=== PATIENT | male | born 1955 | race Caucasian/White ===

== ENCOUNTER 2019-07-18 08:16 | Emergency (ER) | payer MEDICAID ==
[~2019-07-18] VITALS: Ht 152.4 cm; Wt 56.7 kg
[~2019-07-18 08:16] MED LIST: OMEP40EC24 PO
[2019-07-18 08:25] VITALS: BP 169/93
--- NOTE | 2019-07-18 08:25 | NUR ---
PT ambulated to bed 09.
--- NOTE | 2019-07-18 08:38 | NUR ---
C/O NON RADIATING EPIGASTRIC PAIN X2 DAYS. DENIES N/V. SKIN WARM/DRY. A&OX4 HX: NONE RX: NONE . DENIES N/V/D; SKIN IS PINK/WARM/DRY; AAOX4 WITH EVEN AND STEADY GAIT; LUNGS CLEAR BL; HR EVEN AND REGULAR; PT DENIES ANY FEVER, CP, SOB, OR COUGH AT THIS TIME; PATIENT STATES PAIN OF 8/10 AT THIS TIME; VSS; PATIENT POSITIONED FOR COMFORT; HOB ELEVATED; BEDRAILS UP X2; BED DOWN. ER MD MADE AWARE OF PT STATUS.
[2019-07-18] MEDS ORDERED: KETOROLAC 60 MG/2 ML VIAL IM ONE (08:45)
[2019-07-18 09:17] VITALS: BP 165/83
--- NOTE | 2019-07-18 09:18 | NUR ---
Patient discharged with v/s stable. Written and verbal after care instructions given and explained. Patient alert, oriented and verbalized understanding of instructions. Ambulatory with steady gait. All questions addressed prior to discharge. ID band removed. Patient advised to follow up with PMD. Rx of PRILOSEC AND MOTRIN given. Patient educated on indication of medication including possible reaction and side effects. Opportunity to ask questions provided and answered.
== END 2019-07-18 09:18 | disposition home or self-care (01) ==
LOC: MED 08:16
DX: R10.13 Epigastric pain (principal); I10 Essential (primary) hypertension; Z79.899 Other long term (current) drug therapy
CPT/HCPCS: 81002; 96372; 99283; J1885